=== PATIENT | female | born 1985 ===

== ENCOUNTER 2016-05-16 16:28 | Emergency (ER) | payer MEDICARE ==
--- NOTE | 2016-05-16 17:08 | Emergency Department Report ---
Chief Complaint: Pain General Stated Complaint: HEADACHE Time Seen by Provider: 05/16/16 17:04 - HPI History of Present Illness: Patient is a 30 y/o female with history of Lupus who presents due to chronic headache and bilateral shoulder pain x 4 months. Patient states that she has chronic pain, she was told 4 months ago by a doctor that she had shoulder tendonitis due to her chronic steroid use. Patient admits of having nausea with her headaches. - ROS Review of Systems: patient denies any dizziness, she denies any numbness, tingling - Exam Vital Signs: Vital Signs 05/16/16 16:33 Temperature 98.4 F Pulse Rate 81 Respiratory 20 Rate Blood Pressure 145/98 O2 Sat by Pulse 98 Oximetry Physical Exam: Patient seems in pain, NAD MSE screening note: Focused history and physical exam performed. Due to findings the following was ordered:cbc, cmp, ua ED Disposition for MSE Condition: Stable
[2016-05-16 17:46] LABS: Basophils % (Auto) 0.2 % (0.0-1.8); Eosinophils % (Auto) 0.7 % (0.0-4.3); Hematocrit 31.3 % (30.3-42.9); Hemoglobin 9.7 gm/dl (10.1-14.3); Mean Corpuscular HGB Conc 31 % (30-34); Mean Corpuscular Hemoglobin 27 pg (28-32); Mean Corpuscular Volume 87 fl (79-97); Platelet Count 178 K/mm3 (140-440); Red Blood Count 3.59 M/mm3 (3.65-5.03); Red Cell Distribution Width 16.2 % (13.2-15.2); White Blood Count 11.6 K/mm3 (4.5-11.0)
[2016-05-16 18:08] LABS: Albumin 4.2 g/dL (3.9-5); Albumin/Globulin Ratio 1.1 %; BUN/Creatinine Ratio 13.88; Bilirubin,Total 0.2 mg/dL (0.1-1.2); Chloride 102.7 mmol/L (98-107); Potassium 5.2 mmol/L (3.6-5.0)
[2016-05-16 18:23] LABS: Bilirubin,Urine NEG (Negative); Blood,Urine NEG (Negative); Ketones,Urine NEG (Negative); Leukocyte Esterase,Urine SM (Negative); Nitrite,Urine NEG (Negative); Protein,Urine <15 mg/dL mg/dL (Negative); Urobilinogen,Urine < 2.0 mg/dL (<2.0)
[2016-05-17] MEDS ORDERED: DILAUDID IV ONE ×3 (03:14→05:21)
[2016-05-17] MEDS ORDERED: BENADRYL IV ONE (03:15)
[2016-05-17] MEDS ORDERED: ZOFRAN IV ONE (03:15)
[2016-05-17] MEDS ORDERED: ATARAX PO ONE (05:12)
[2016-05-17] MEDS ORDERED: KIONEX PO ONE (06:18)
--- NOTE | 2016-05-17 06:23 | Emergency Department Report ---
[id number] - HPI HPI: This is a 30-year-old Afro-Turk[place] female presents to the emergency department with generalized pains and aches that she believes is a lupus flare up. She has pain in the bilateral hips, bilateral shoulders, among other areas of her body. This is all been going on for the past 3-4 weeks but she says she has just been ignoring it but is not getting any better. She is not taken anything for symptoms prior to presentation as she says she has no pain medication at home. The patient's physician is through [place] but the patient herself lives in [facility] and just happens to be appear with this exacerbation going on. She denies any fever, shortness of breath, dysuria but does have some nausea and vomiting. No sick contacts at home. Patient has a history of renal transplant and does admit to some level of renal insufficiency but she has not dialysis dependent. She says that her normal baseline creatinine is somewhere in the high 1, close to 2. ED Past Medical Hx - Past Medical History Previous Medical History?: Yes Hx Deep Vein Thrombosis: Yes Hx Pulmonary Embolism: Yes Additional medical history: Lupus, Blood clots, Miscarriage x 3 - Surgical History Past Surgical History?: Yes Hx Appendectomy: Yes Additional Surgical History: Kidney transplant right side. Reid hip replacement, Kidney biopsy, D&C - Social History Smoking Status: Never Smoker Substance Use Type: Prescribed - Medications Home Medications: Home Medications Medication Instructions Recorded Confirmed Last Taken Type Clorazepam 1 mg PO TID 05/16/16 05/16/16 History FLUoxetine [PROzac] 60 mg PO QDAY 05/16/16 05/16/16 05/16/16 History Gabapentin [Gralise] 300 mg PO BID 05/16/16 05/16/16 05/16/16 History Gabapentin [Neurontin] 600 mg PO QPM 05/16/16 05/16/16 05/15/16 History Hydroxychloroquine [Plaquenil] 200 mg PO QDAY 05/16/16 05/16/16 05/16/16 History Mycophenolate [Cellcept] 1 tab PO BID 05/16/16 05/16/16 05/16/16 History Prednisone 5 mg PO DAILY 05/16/16 05/16/16 05/16/16 History Tacrolimus [Prograf] 4 mg PO BID 05/16/16 05/16/16 05/16/16 History Ondansetron [Zofran Odt] 4 mg PO Q8H PRN #10 tab.rapdis 05/17/16 Unknown Rx Ropinirole HCl [Requip] 2 mg PO QHS 05/17/16 05/17/16 05/15/16 History Zolpidem [Ambien] 10 mg PO QHS 05/17/16 05/17/16 05/16/16 History oxyCODONE /ACETAMINOPHEN [Percocet 1 tab PO Q6HR PRN #14 tablet 05/17/16 Unknown Rx 5/325] ED Review of Systems ROS: Stated complaint: HEADACHE Other details as noted in HPI Comment: All other systems reviewed and negative Constitutional: denies: chills, fever Eyes: denies: eye pain, eye discharge, vision change ENT: denies: ear pain, throat pain Respiratory: denies: cough, shortness of breath, wheezing Cardiovascular: denies: palpitations, edema Gastrointestinal: nausea, vomiting Genitourinary: denies: urgency, dysuria, discharge Musculoskeletal: back pain, arthralgia, myalgia Skin: denies: rash, lesions Neurological: denies: headache, weakness, paresthesias Physical Exam - Physical Exam Vital Signs: Vital Signs 05/16/16 05/16/16 05/17/16 16:33 20:31 01:26 Temperature 98.4 F 99.2 F 99.4 F Pulse Rate 81 86 90 Respiratory 20 20 20 Rate Blood Pressure 145/98 144/100 Blood Pressure [Left] Blood Pressure 145/87 [Right] O2 Sat by Pulse 98 100 99 Oximetry 05/17/16 05/17/16 05/17/16 02:46 03:56 04:26 Temperature 98.6 F Pulse Rate 86 Respiratory 18 18 18 Rate Blood Pressure Blood Pressure 148/93 [Left] Blood Pressure [Right] O2 Sat by Pulse 100 Oximetry 05/17/16 05/17/16 05:53 05:54 Temperature Pulse Rate Respiratory 18 18 Rate Blood Pressure Blood Pressure [Left] Blood Pressure [Right] O2 Sat by Pulse Oximetry Physical Exam: GENERAL: The patient is well-developed well-nourished. HEENT: Normocephalic. Atraumatic. Extraocular motions are intact. Patient has moist mucous membranes. Pupils equal reactive to light bilaterally. NECK: Supple. Trachea is midline. CHEST/LUNGS: Clear to auscultation. There is no respiratory distress noted. Patient has some tenderness to palpation along the chest wall. HEART/CARDIOVASCULAR: Regular. There is no tachycardia. There is no gallop rub or murmur. ABDOMEN: Abdomen is soft, nontender. Patient has normal bowel sounds. There is no abdominal distention. SKIN: There is no rash. There is no edema. There is no diaphoresis. NEURO: The patient is awake, alert, and oriented. The patient is cooperative. The patient has no focal neurologic deficits. The patient has normal speech and gait. MUSCULOSKELETAL: There is no tenderness or deformity. Unable to reproduce patient's joint pains to palpation. Radial pulses +2 over 4 bilaterally. Cap refill less than 2 seconds. There is no limitation range of motion. There is no evidence of acute injury. Muscle strength 5 out of 5 upper and lower extremity bilaterally. ED Course Vital Signs 05/16/16 05/16/16 05/17/16 16:33 20:31 01:26 Temperature 98.4 F 99.2 F 99.4 F Pulse Rate 81 86 90 Respiratory 20 20 20 Rate Blood Pressure 145/98 144/100 Blood Pressure [Left] Blood Pressure 145/87 [Right] O2 Sat by Pulse 98 100 99 Oximetry 05/17/16 05/17/16 05/17/16 02:46 03:56 04:26 Temperature 98.6 F Pulse Rate 86 Respiratory 18 18 18 Rate Blood Pressure Blood Pressure 148/93 [Left] Blood Pressure [Right] O2 Sat by Pulse 100 Oximetry 05/17/16 05/17/16 05:53 05:54 Temperature Pulse Rate Respiratory 18 18 Rate Blood Pressure Blood Pressure [Left] Blood Pressure [Right] O2 Sat by Pulse Oximetry ED Medical Decision Making - Lab Data Result diagrams: 05/16/16 17:28 05/16/16 17:28 - EKG Data -: EKG Interpreted by Me EKG shows normal: sinus rhythm, axis, intervals, QRS complexes, ST-T waves Rate: normal - EKG Data When compared to previous EKG there are: previous EKG unavailable Interpretation: normal EKG - Radiology Data Radiology results: image reviewed interpreted by me: Chest x-ray did not show any acute process. Heart is normal shape and size. No effusions. No pneumothorax. No signs of pneumonia seen. X-ray of the bilateral shoulders does not show any fracture, dislocation or acute process. - Medical Decision Making 30-year-old female presents with acute on chronic body aches that are worst in the bilateral shoulders. Patient has a very mild leukocytosis of 11,000 that is more likely reactive been any sign of bacterial infection. She has some renal insufficiency but does have history of renal transplant and says that she does have some level of chronic renal insufficiency and patient is producing urine. Very mild hyperkalemia with a potassium of 5.2 so given some Kayexalate. Patient was given a few doses of pain medication, IV fluid resuscitation, antinausea medication. Her vital signs are stable throughout ED course. A chest x-ray and bilateral shoulder x-ray were done that did not show any acute process. 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 Patient has good follow-up with a primary care doctor at [place] as well as a with orthopedics surgeon back in [place], where she still lives. She'll be discharged home with some pain medication, nausea medication and encouraged follow-up with her physicians. She'll return to the ER with any worsening of her symptoms or any acute distress. - Differential Diagnosis Lupus, fibromyalgia, influenza, avascular necrosis Critical Care Time: No Critical care attestation.: If time is entered above; I have spent that time in minutes in the direct care of this critically ill patient, excluding procedure time. ED Disposition Clinical Impression: Lupus, Body aches CKD (chronic kidney disease) Qualifiers: Chronic kidney disease stage: unspecified stage Qualified Code(s): N18.9 - Chronic kidney disease, unspecified Arthralgia Qualifiers: Joint pain location: unspecified Qualified Code(s): M25.50 - Pain in unspecified joint Disposition: DISCHARGED TO HOME OR SELFCARE Is pt being admited?: No Does the pt Need Aspirin: No Condition: Stable Instructions: Arthralgia (ED), Chronic Kidney Disease (ED), Acute Nausea and Vomiting (ED) Additional Instructions: Please follow-up with your primary care doctor in the next few days. I've also given you a referral for a local orthopedist in case she needed to follow up regarding your shoulder and hip pains. Return to the emergency department with any worsening of your symptoms or any acute distress. Prescriptions: oxyCODONE /ACETAMINOPHEN [Percocet 5/325] 1 tab PO Q6HR PRN #14 tablet PRN Reason: Pain Ondansetron [Zofran Odt] 4 mg PO Q8H PRN #10 tab.rapdis PRN Reason: Nausea Referrals: GELA CARLISLE MD [Primary Care Provider] - 3-5 Days DANISH NAVAS MD [Staff Physician] - 3-5 Days Time of Disposition: 06:41
--- NOTE | 2016-05-17 06:54 | XRay Report ---
FINAL REPORT PROCEDURE: XR CHEST 1V AP TECHNIQUE: Chest radiograph anteroposterior view. CPT 12358 HISTORY: CP COMPARISON: No prior studies are available for comparison. FINDINGS: Heart: Normal. Mediastinum/Vessels: Normal. Lungs/Pleural space: Normal. Bony thorax: No acute osseous abnormality. Life support devices: None. IMPRESSION: No acute cardiopulmonary abnormality.
--- NOTE | 2016-05-17 06:57 | XRay Report ---
FINAL REPORT PROCEDURE: XR SHOULDER BILAT 2 TECHNIQUE: BILATERAL shoulder radiographs including AP views in internal and external rotation and abduction. HISTORY: bilateral shoulder pain COMPARISON: No prior studies are available for comparison. FINDINGS: Fracture(s) and/or Dislocation(s): None. There are subchondral degenerative cystic changes of the right humeral head. Joint space(s): Joint space is normal bilaterally. Soft tissues: Normal. Bone mineralization: Normal. Foreign bodies: None. IMPRESSION: There are no fractures. There are subchondral degenerative cystic changes of the right humeral head. Joint space is normal bilaterally.
[2016-05-17 08:08] VITALS: BP 147/90
== END 2016-05-17 08:08 | disposition home or self-care (01) ==
LOC: ED 16:28
DX: M32.9 Systemic lupus erythematosus, unspecified (principal); N18.9 Chronic kidney disease, unspecified; M79.1 Myalgia; M25.50 Pain in unspecified joint; Z86.711 Personal history of pulmonary embolism; Z86.718 Personal history of other venous thrombosis and embolism; Z94.0 Kidney transplant status; Z96.643 Presence of artificial hip joint, bilateral
CPT/HCPCS: 36415; 71010; 73030; 80053; 81001; 81025; 85025; 93005; 93010; 96374; 96375; 96376; 99284; J1170; J1200; J2405